=== PATIENT | female | born 1985 | race African-American/Black ===

== ENCOUNTER 2018-01-15 16:58 | Observation (INO) | payer MEDICAID ==
[~2018-01-15] VITALS: Ht 160 cm; Wt 59.0 kg
[2018-01-15] MEDS ORDERED: DEXT 5%/LR + PITOCIN 20UNITS/L 1,000 ML IV SCH (18:27)
[2018-01-15] MEDS ORDERED: NALOXONE HCL 0.4 MG/ML 1ML VIAL IM PRN (18:30)
[2018-01-15] MEDS ORDERED: METHYLERGONOVINE MALEATE 0.2 MG/ML IM PRN (18:30)
[2018-01-15] MEDS ORDERED: CARBOPROST TROMETHAMINE 250 MCG/ML AMPUL IM PRN (18:30)
[2018-01-15] MEDS ORDERED: BETAMETHASONE ACET/BETAMET 30 MG/5 ML VIAL IM SCH (18:30)
[2018-01-15 19:08] LABS: CLARITY URINE CLEAR (CLEAR); COLOR URINE YELLOW (YELLOW); KETONES URINE NEGATIVE (NEGATIVE); LEUKOCYTE ESTERASE URINE 1+ (NEGATIVE); NITRITE URINE NEGATIVE (NEGATIVE); OCCULT BLOOD URINE 3+ (NEGATIVE); PH URINE 6.5 (4.5-8.0); PROTEIN URINE NEGATIVE (NEGATIVE); SPECIFIC GRAVITY URINE 1.003 (1.005-1.030); UROBILINOGEN URINE 0.2 E.U./dL (0.2-1.0)
[2018-01-15] MEDS: LACTATED RINGERS 1,000 ML IV SCH (19:08)
[2018-01-15 19:20] LABS: BASOPHILS % 0.4 % (0.0-2.0); EOSINOPHILS % 0.6 % (0.0-5.0); HEMATOCRIT. 30.9 % (36.0-48.0); HEMOGLOBIN. 10.7 g/dL (12.0-16.0); LYMPHOCYTES % 16.6 % (20.0-50.0); MEAN CORPUSCULAR HEMOGLOBIN 33.3 pg (28.0-32.0); MEAN CORPUSCULAR VOLUME 96.4 fL (81.0-99.0); MEAN PLATELET VOLUME 7.8 fl (7.4-10.4); MONOCYTES % 8.1 % (2.0-8.0); NEUTROPHILS % 74.3 % (40.0-76.0); PLATELET 196 x1000/uL (130-400); RED BLOOD CELL COUNT 3.21 mill/uL (4.2-5.4); RED CELL DISTRIBUTION WIDTH 12.9 % (11.6-14.6)
[2018-01-15 19:23] LABS: CHLORIDE 106 mEq/L (98-107)
[2018-01-15 19:28] LABS: *AMPHETAMINES SCREEN URINE NEGATIVE (NEGATIVE)
[2018-01-15 19:29] LABS: *BARBITURATES SCREEN URINE NEGATIVE (NEGATIVE); *BENZODIAZEPINES SCREEN URINE NEGATIVE (NEGATIVE); *COCAINE SCREEN URINE NEGATIVE (NEGATIVE); METHADONE URINE SCREEN NEGATIVE (NEGATIVE); OPIATES URINE SCREEN NEGATIVE (NEGATIVE); PHENCYCLIDINE URINE SCREEN NEGATIVE (NEGATIVE)
[2018-01-15 19:29] LABS: PARTIAL THROMBOPLASTIN TIME 24.9 sec (23.4-31.0); PROTHROMBIN TIME 10.5 sec (9.1-11.1)
[2018-01-15 19:30] LABS: CANNABINOID URINE SCREEN NEGATIVE (NEGATIVE)
[2018-01-15 20:00] VITALS: BP 135/80
[2018-01-15] MEDS ORDERED: MAGNESIUM 20 G PREMIX (L & D) 500 ML IV SCH (20:00)
[2018-01-15] MEDS ORDERED: AMPICILLIN 2,000 MG in SODIUM CHLORIDE 0.9% 100 ML IV SCH (20:00)
[2018-01-15 20:05] LABS: RUBELLA IGG 97.1 IU/mL (4.99-10)
[2018-01-15 20:06] LABS: HEPATITIS B SURFACE ANTIGEN NEGATIVE
[2018-01-16] MEDS: AMPICILLIN 1,000 MG in SODIUM CHLORIDE 0.9% 50 ML IV SCH ×4 (02:28→20:37)
[2018-01-16] MEDS: LACTATED RINGERS 1,000 ML IV SCH ×3 (04:16→12:12)
[2018-01-16 11:32] LABS: BASOPHILS % 0.5 % (0.0-2.0); HEMATOCRIT. 27.1 % (36.0-48.0); HEMOGLOBIN. 9.4 g/dL (12.0-16.0); LYMPHOCYTES % 19.2 % (20.0-50.0); MEAN CORPUSCULAR HEMOGLOBIN 33.3 pg (28.0-32.0); MEAN CORPUSCULAR VOLUME 96.6 fL (81.0-99.0); MONOCYTES % 10.5 % (2.0-8.0); NEUTROPHILS % 68.8 % (40.0-76.0); PLATELET 166 x1000/uL (130-400); RED BLOOD CELL COUNT 2.81 mill/uL (4.2-5.4); RED CELL DISTRIBUTION WIDTH 13.1 % (11.6-14.6)
[2018-01-17] MEDS: AMPICILLIN 1,000 MG in SODIUM CHLORIDE 0.9% 50 ML IV SCH ×2 (02:18→09:00)
== END 2018-01-17 14:30 | disposition home or self-care (01) ==
LOC: L&D 16:58
PROVIDERS: ADMIT Obstetrics & Gynecology; ATTEND Obstetrics & Gynecology
DX: O46.93 Antepartum hemorrhage, unspecified, third trimester (principal); O99.513 Diseases of the respiratory system complicating pregnancy, third trimester; J45.909 Unspecified asthma, uncomplicated; Z3A.28 28 weeks gestation of pregnancy
CPT/HCPCS: 36415; 76805; 80053; 80305; 81003; 85025; 85610; 85730; 86592; 86703; 86762; 86850; 86900; 86901; 86920; 87340; 96365; 96366; 96367; 99281; G0378; J0290; J0702; J7120; 96360; 96361; J7050; A4315

== ENCOUNTER 2018-07-25 15:28 | Emergency (ER) | payer MEDICAID ==
[~2018-07-25] VITALS: Ht 160 cm; Wt 57.0 kg
[~2018-07-25 15:28] MED LIST: PNV11TAB MT
[2018-07-25 19:49] LABS: CLARITY URINE CLOUDY (CLEAR); COLOR URINE YELLOW (YELLOW); KETONES URINE 4+ (NEGATIVE); LEUKOCYTE ESTERASE URINE 2+ (NEGATIVE); NITRITE URINE POSITIVE (NEGATIVE); OCCULT BLOOD URINE NEGATIVE (NEGATIVE); PROTEIN URINE 2+ (NEGATIVE); SPECIFIC GRAVITY URINE 1.024 (1.005-1.030)
[2018-07-25] MEDS ORDERED: SODIUM CHLORIDE 0.9% 1,000 ML IV ONE (20:00)
[2018-07-25 20:18] LABS: HEMOGLOBIN. 13.8 g/dL (12.0-16.0); MEAN CORPUSCULAR HEMOGLOBIN 32.6 pg (28.0-32.0); MEAN CORPUSCULAR VOLUME 96.4 fL (81.0-99.0); MEAN PLATELET VOLUME 8.3 fl (7.4-10.4); PLATELET 297 x1000/uL (130-400); RED BLOOD CELL COUNT 4.25 mill/uL (4.2-5.4)
[2018-07-25 20:23] LABS: CHLORIDE 103 mEq/L (98-107)
[2018-07-25 20:31] LABS: PLATELET ESTIMATE NORMAL
[2018-07-25 22:24] VITALS: BP 161/102
== END 2018-07-25 22:27 | disposition home or self-care (01) ==
LOC: ER 15:38
DX: N39.0 Urinary tract infection, site not specified (principal); I10 Essential (primary) hypertension; F10.10 Alcohol abuse, uncomplicated; Y90.9 Presence of alcohol in blood, level not specified
CPT/HCPCS: 36415; 71045; 80053; 81003; 81025; 85025; 87077; 87086; 87186; 96360; 96361; 99284; J7030

== ENCOUNTER 2019-11-04 15:41 | Emergency (ER) | payer MEDICAID ==
[~2019-11-04] VITALS: Ht 165.1 cm; Wt 61.0 kg
[2019-11-04 16:34] LABS: BASOPHILS % 0.5 % (0.0-2.0); EOSINOPHILS % 0.3 % (0.0-5.0); HEMATOCRIT. 37.8 % (36.0-48.0); LYMPHOCYTES % 17.1 % (20.0-50.0); MEAN CORPUSCULAR HEMOGLOBIN 35.8 pg (28.0-32.0); MEAN PLATELET VOLUME 6.9 fl (7.4-10.4); MONOCYTES % 8.6 % (2.0-8.0); NEUTROPHILS % 73.5 % (40.0-76.0); PLATELET 247 x1000/uL (130-400); RED BLOOD CELL COUNT 3.63 mill/uL (4.2-5.4); RED CELL DISTRIBUTION WIDTH 22.3 % (11.6-14.6)
[2019-11-04 16:39] LABS: CHLORIDE 106 mEq/L (98-107)
[2019-11-04 16:43] LABS: ETHANOL BLOOD < 10 mg/dL; HCG SCREEN NEGATIVE
[2019-11-04 16:44] LABS: INR 1.2; PROTHROMBIN TIME 12.3 sec (9.6-11.0)
[2019-11-04] MEDS ORDERED: ONDANSETRON HCL 4MG/2ML INJ IV ONE (16:45)
[2019-11-04] MEDS ORDERED: ACETAMINOPHEN 650MG/20.3ML UDC PO ONE (16:45)
[2019-11-04] MEDS ORDERED: SODIUM CHLORIDE 0.9% 1,000 ML IV ONE (16:45)
[2019-11-04 16:48] LABS: COLOR URINE YELLOW (YELLOW); KETONES URINE TRACE (NEGATIVE); LEUKOCYTE ESTERASE URINE NEGATIVE (NEGATIVE); NITRITE URINE NEGATIVE (NEGATIVE); OCCULT BLOOD URINE NEGATIVE (NEGATIVE); PH URINE 5.5 (4.5-8.0); PROTEIN URINE NEGATIVE (NEGATIVE); SPECIFIC GRAVITY URINE 1.016 (1.005-1.030); UROBILINOGEN URINE 0.2 E.U./dL (0.2-1.0)
[2019-11-04 16:58] LABS: CLARITY URINE CLEAR (CLEAR)
[2019-11-04 17:00] LABS: *AMPHETAMINES SCREEN URINE NEGATIVE (NEGATIVE); *BARBITURATES SCREEN URINE NEGATIVE (NEGATIVE); *BENZODIAZEPINES SCREEN URINE NEGATIVE (NEGATIVE); *COCAINE SCREEN URINE NEGATIVE (NEGATIVE); CANNABINOID URINE SCREEN NEGATIVE (NEGATIVE); OPIATES URINE SCREEN NEGATIVE (NEGATIVE); PHENCYCLIDINE URINE SCREEN NEGATIVE (NEGATIVE)
[2019-11-04 17:01] LABS: METHADONE URINE SCREEN NEGATIVE (NEGATIVE)
[2019-11-04 17:16] LABS: PLATELET ESTIMATE NORMAL
[2019-11-04 20:56] VITALS: BP 180/100
== END 2019-11-04 20:55 | disposition home or self-care (01) ==
LOC: ER 15:41
DX: E86.0 Dehydration (principal); G89.29 Other chronic pain; M54.5 Low back pain; R11.2 Nausea with vomiting, unspecified; R19.7 Diarrhea, unspecified
CPT/HCPCS: 36415; 80053; 80305; 80320; 81003; 83605; 83690; 84703; 85025; 85610; 93005; 96360; 99285; J7030; J2405; G0480

== ENCOUNTER 2019-12-25 20:54 | Emergency (ER) | payer MEDICAID ==
[~2019-12-25] VITALS: Ht 160 cm; Wt 51.0 kg
[2019-12-25 22:08] VITALS: BP 162/102
[2019-12-25] MEDS ORDERED: LIDOCAINE 1%/EPI 1:100,000 10 ML VIAL IJ ONE (22:30)
[2019-12-25] MEDS ORDERED: BACITRACIN ZINC OINT UDPKT TOP ONE (22:30)
== END 2019-12-26 00:40 | disposition home or self-care (01) ==
LOC: ER 20:54
DX: S51.811A Laceration without foreign body of right forearm, initial encounter (principal); I10 Essential (primary) hypertension; Z90.49 Acquired absence of other specified parts of digestive tract; Y04.0XXA Assault by unarmed brawl or fight, initial encounter; Y93.89 Activity, other specified; Y92.89 Other specified places as the place of occurrence of the external cause; Y99.8 Other external cause status
CPT/HCPCS: 12002; 99282; J3490